=== PATIENT | male | born 1980 | race Caucasian/White ===

== ENCOUNTER 2017-09-01 13:07 | Day surgery (SDC) | payer OTHER ==
[~2017-09-01] VITALS: Ht 177.8 cm; Wt 145.1 kg
[~2017-09-01 13:07] MED LIST: ALLEGRA60 MG PO; APRESOLINE25 MG PO; COLCRYS0.6 MG PO; COUMADIN3 MG PO; HUMIRA20 MG/0.4 SC; NORVASC10 MG PO; PREDNISONE10 MG PO; PROGRAF1 MG PO; RENAGEL800 MG PO; TOPROL XL100 MG PO; WELLBUTRIN XL300 MG PO; [UNRECOGNIZED DRUG - OTHER] SL
[2017-09-01 13:38] LABS: HEMATOCRIT 42.2 % (38.0-50.0); HEMOGLOBIN 13.3 G/DL (12.5-16.6); MCH 28.4 PG (29.0-34.0); MCHC 31.5 G/DL (30.0-36.0); MCV 90.2 FL (86-99); NRBC (%) 0.5 /100 WBC (0-0); PLATELET COUNT 143 K/uL (156-360); RBC DIS.WIDTH-CV 18.4 % (11.8-14.6); RBC DIS.WIDTH-SD 56.4 % (39-53); RED BLOOD COUNT 4.68 M/uL (4.00-5.50)
[2017-09-01 13:45] VITALS: BP 167/93
[2017-09-01 13:56] LABS: CHLORIDE 107 MEQ/L (99-109); POTASSIUM 4.2 MEQ/L (3.7-5.4); SODIUM 141 MEQ/L (136-147)
[2017-09-01 14:02] LABS: CREATININE 7.8 MG/DL (0.6-1.3); GFR ESTIMATE (CALCULATED) 8 mL/min/ (58.99-99999); GLUCOSE 74 mg/dL (70-99); UREA NITROGEN (BUN) 65 mg/dL (9-23)
[2017-09-01 20:35] VITALS: BP 127/80
[2017-09-01 21:45] VITALS: BP 127/73
== END 2017-09-01 21:50 | disposition home or self-care (01) ==
LOC: SDC 13:07
PROVIDERS: Surgery
DX: I12.0 Hypertensive chronic kidney disease with stage 5 chronic kidney disease or end stage renal disease (principal); N18.6 End stage renal disease; Z99.2 Dependence on renal dialysis; Z79.01 Long term (current) use of anticoagulants
CPT/HCPCS: 80048; 85027; 87641; J0690; J1170; J1644; J2405; J2720; J3010